=== PATIENT | female | born 1965 | race Caucasian/White ===

== ENCOUNTER 2022-09-02 17:13 | Emergency (ER) | payer SELFPAY ==
[2022-09-02 17:15] VITALS: BP 176/80; PULSE 93; RESP 14; TEMP 36.4; O2SAT 99
--- NOTE | 2022-09-02 18:27 | PC.NURSE ---
pt states swelling has improved some. states will contact physician in the morning and promises to return to ed if any problem breathing or swallowing
== END 2022-09-02 19:30 | disposition left against medical advice (07) ==
DX: R59.9 Enlarged lymph nodes, unspecified (principal)
CPT/HCPCS: 99199